=== PATIENT | female | born 2000 | race Two or more races ===

== ENCOUNTER 2020-03-26 23:36 | Observation (INO) | payer MEDICAID ==
[~2020-03-26] VITALS: Ht 154.9 cm; Wt 64.0 kg
[2020-03-27 00:43] VITALS: BP 95/56
[2020-03-29 16:17] LABS: CLARITY URINE CLEAR (CLEAR); COLOR URINE YELLOW (YELLOW); KETONES URINE NEGATIVE (NEGATIVE); LEUKOCYTE ESTERASE URINE 2+ (NEGATIVE); NITRITE URINE NEGATIVE (NEGATIVE); OCCULT BLOOD URINE 1+ (NEGATIVE); PROTEIN URINE NEGATIVE (NEGATIVE); SPECIFIC GRAVITY URINE 1.025 (1.005-1.030)
== END 2020-03-29 17:15 | disposition home or self-care (01) ==
LOC: ER 23:36 → 8EST NSY 03-29 15:05 → 8 EST A/PP 03-29 15:47
PROVIDERS: ADMIT Obstetrics & Gynecology; ATTEND Obstetrics & Gynecology
DX: O26.892 Other specified pregnancy related conditions, second trimester (principal); R10.30 Lower abdominal pain, unspecified; Z3A.23 23 weeks gestation of pregnancy
CPT/HCPCS: 59025; 81003; G0378; 99281

== ENCOUNTER 2020-04-08 13:03 | Observation (INO) | payer MEDICAID ==
[~2020-04-08] VITALS: Ht 157.5 cm; Wt 698.5 kg
[2020-04-08 14:56] LABS: CLARITY URINE TURBID (CLEAR); COLOR URINE YELLOW (YELLOW); KETONES URINE NEGATIVE (NEGATIVE); LEUKOCYTE ESTERASE URINE 3+ (NEGATIVE); NITRITE URINE NEGATIVE (NEGATIVE); OCCULT BLOOD URINE 1+ (NEGATIVE); PH URINE 5.5 (4.5-8.0); PROTEIN URINE NEGATIVE (NEGATIVE)
[2020-04-08] MEDS ORDERED: SODIUM CHLORIDE 0.9% 1,000 ML IV SCH (15:30)
[2020-04-08] MEDS ORDERED: CEFAZOLIN 2,000 MG in DEXT 5% WATER 100 ML IV SCH (17:00)
== END 2020-04-08 18:10 | disposition home or self-care (01) ==
LOC: 8 EST LDRP 13:03
PROVIDERS: ADMIT Obstetrics & Gynecology; ATTEND Obstetrics & Gynecology
DX: O26.892 Other specified pregnancy related conditions, second trimester (principal); Z3A.25 25 weeks gestation of pregnancy
CPT/HCPCS: 81003; 87086; 96365; G0378; J0690; J7060; 99281

== ENCOUNTER 2020-04-10 03:08 | Observation (INO) | payer MEDICAID ==
[2020-04-10] MEDS ORDERED: LACTATED RINGERS 1,000 ML IV STA (04:00)
== END 2020-04-10 04:07 | disposition left against medical advice (07) ==
LOC: 8 EST LDRP 03:08
PROVIDERS: ADMIT Specialist; ATTEND Specialist
DX: O26.892 Other specified pregnancy related conditions, second trimester (principal); R10.84 Generalized abdominal pain; Z3A.25 25 weeks gestation of pregnancy
CPT/HCPCS: 59025; G0378; 99281

== ENCOUNTER 2020-06-11 11:54 | Observation (INO) | payer MEDICAID ==
[~2020-06-11] VITALS: Ht 162.6 cm; Wt 63.5 kg
[2020-06-11 14:39] LABS: CLARITY URINE CLEAR (CLEAR); COLOR URINE YELLOW (YELLOW); KETONES URINE NEGATIVE (NEGATIVE); LEUKOCYTE ESTERASE URINE 2+ (NEGATIVE); NITRITE URINE NEGATIVE (NEGATIVE); OCCULT BLOOD URINE NEGATIVE (NEGATIVE); PH URINE 5.5 (4.5-8.0); PROTEIN URINE NEGATIVE (NEGATIVE); SPECIFIC GRAVITY URINE 1.018 (1.005-1.030); UROBILINOGEN URINE 0.2 E.U./dL (0.2-1.0)
[2020-06-11] MEDS ORDERED: CEFAZOLIN 2,000 MG in DEXT 5% WATER 100 ML IV NR (16:00)
[2020-06-11] MEDS ORDERED: PNV1TABL76 MT (16:43)
== END 2020-06-11 17:15 | disposition home or self-care (01) ==
LOC: 8 EST LDRP 11:54
PROVIDERS: ADMIT Obstetrics & Gynecology; ATTEND Obstetrics & Gynecology
DX: O36.8130 Decreased fetal movements, third trimester, not applicable or unspecified (principal); O26.893 Other specified pregnancy related conditions, third trimester; R10.30 Lower abdominal pain, unspecified; Z3A.33 33 weeks gestation of pregnancy
CPT/HCPCS: 59025; 76805; 76818; 81003; 87086; 96365; G0378; J0690; J7060; 99281